=== PATIENT | female | born 1975 | race Caucasian/White ===

== ENCOUNTER 2017-03-19 15:37 | Inpatient (IN) | payer OTHER ==
[~2017-03-19] VITALS: Ht 168.9 cm; Wt 195.8 kg
[2017-03-19 15:41] VITALS: BP 166/101; PULSE 79; RESP 30; O2SAT 91
[2017-03-19 16:15] VITALS: BP 166/98; PULSE 75; RESP 26; O2SAT 96
[2017-03-19 16:20] LABS: BASOPHILS % (AUTO) 0.5 % (0-3); EOSINOPHILS % (AUTO) 0.4 % (0-5); MONOCYTES % (AUTO) 7.9 % (4-12); Mean Corpuscular Hemoglobin 24.8 pg (27.0-35.0); Mean Corpuscular Volume 82.8 fL (81-100); NEUTROPHILS % (AUTO) 77.6 % (40-74); Platelet Count 178 bil/L (150-400)
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
[2017-03-19] MEDS ORDERED: Albuterol 2.5 mg/3 mL Inhalation Solution NEB ONE (16:40)
[2017-03-19 16:48] LABS: TROPONIN T 0.033 ug/L (0.0-0.011)
--- NOTE | 2017-03-19 16:58 | DRSVH ---
PROCEDURE: X-RAY CHEST, TWO VIEWS ([id number]) INDICATIONS: SHORTNESS OF BREATH, low sats TECHNIQUE: 2 views of the chest were acquired. COMPARISON: None. FINDINGS: Surgical changes and devices: None. Lungs and pleura: No pleural effusions or pneumothorax. Lungs are abnormal with edema. Mediastinum: Mediastinal contours are normal. Heart size is moderately enlarged, and likely this is a chronic circumstance. Bones and chest wall: No suspicious bony abnormalities. Soft tissues appear unremarkable. IMPRESSION: Chronic CHF with acute exacerbation, no focal underlying pneumonia is found. No pleural effusion or mass lesion seen. Dictated by: Tyler Gomez M.D. on 03/19/2017 at 16:56 Approved by: Tyler Gomez M.D. on 03/19/2017 at 16:56
[2017-03-19 16:59] LABS: Magnesium 1.9 mg/dL (1.6-2.6)
[2017-03-19 17:10] VITALS: PULSE 77; RESP 16; O2SAT 97
[2017-03-19 18:06] VITALS: BP 151/96; PULSE 86; RESP 24; O2SAT 97
[2017-03-19] MEDS ORDERED: ENOXAPARIN SUBQ SCH ×2 (18:45)
[2017-03-19] MEDS ORDERED: Alum-Mag Hydrox-Simeth 30 mL Suspension PO PRN ×2 (18:55→19:20)
[2017-03-19] MEDS ORDERED: Ondansetron 2 mg/mL 2 mL Inj IVPUSH PRN ×2 (18:55→19:20)
[2017-03-19 19:20] VITALS: BP 151/96; PULSE 86; RESP 24; O2SAT 97
[2017-03-19] MEDS ORDERED: Senna-Docusate 8.6-50 mg Tablet PO PRN (19:20)
[2017-03-19] MEDS ORDERED: Polyethylene Glycol (PEG) 17 Gm Powder PO PRN (19:20)
--- NOTE | 2017-03-19 20:06 | DRSVH ---
PROCEDURE: US VENOUS LEG DUPLEX BILATERAL INDICATIONS: Bilateral leg swelling and redness. TECHNIQUE: Real-time imaging, as well as color and pulse Doppler interrogation, were performed of the deep veins of both legs from the inguinal ligament to the popliteal fossa. COMPARISON: None. FINDINGS: The deep veins are normally compressible, and free of intraluminal thrombus. Color and pu lse Doppler demonstrate normal phasic intravascular flow. There is normal augmentation response to d istal compression maneuver. Evaluation slightly limited by body habitus. IMPRESSION: 1. No evidence of deep venous thrombosis in the right or left lower extremity. Dictated by: Lito Hopkins M.D. on 03/19/2017 at 20:03 Approved by: Lito Hopkins M.D. on 03/19/2017 at 20:04
[2017-03-19 20:13] VITALS: BP 156/91; PULSE 82; RESP 18; O2SAT 95
[2017-03-19] MEDS ORDERED: Furosemide 10 mg/mL 10 mL Inj IVPUSH ONE (22:05)
--- NOTE | 2017-03-19 22:10 | PCM.HPMED ---
Subjective Date of Service March 19, 2017 Primary Provider: Admitting Physician: Primary Care Physician: Attending Physician: Admit Status: From the Emergency Department, Remote Telemetry Chief Complaint: Cough and congestion with shortness of breath History of Present Illness: Patient is a morbidly obese 41-year-old ex-smoker without previous history of known cardiac disease who presented to ED with new onset congestion and cough, congestion and increased shortness of breath for 1 week. Patient also reports of 20 pound weight gain in the past 3 weeks, with associated symptoms of increased fatigue and lateral lower extremity swelling, which patient attributed to too much sitting and poor diet. No known sick contacts. Patient denies chest pain, fevers or chills. PCP, Maeve Vargas. In the emergency department, she was noted to have episodes of desaturation required supplemental O2. She is also tachypic, but not visible distress. She has some chronic edema of her legs which reports is unchanged attributes to her habitus. Family history of heart disease, or prior history of heart disease. In the ED vitals temperature 37.4 pulse 70 respiratory 30 blood pressure 166/ 101 pulse ox 91% on room air. Labs, no leukocytosis with WBC 8.0, elevated bicarbonate at 33, with BNP 2160, troponin 0.03, D-dimer 1.1. CXR showed "Chronic CHF with acute exacerbation, no focal underlying pneumonia is found." Patient's size not fit for CTA, venous Doppler done on bilateral legs which were negative, apparently dosed with Lovenox overnight. Case was discussed with on-call food preservation scientist. Patient to have echocardiogram for further risk stratification, with cardiology seeing patient in the morning. Patient admitted for further workup and management. Review of Systems: Obesity Denies: Asthma, Diabetes mellitus, Hypertension Past Surgical History denies Smoking History Former Smoker (quit 11 years ago) Social History Alcohol Use: Denies alcohol use Drug Use: Denies drug use Occupation single work at [employer] in [place], need a work note 03/19/2017 Ambulatory Status Independent Allergies Coded Allergies: No Known Allergies (Unverified , 03/19/17) Home Medications No prescription medications. 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[employer] Alcohol Use: No Hx Substance Use: No Hx Tobacco Use: Yes Smoking Status: Former Smoker (quit 11 years ago) Living Arrangement: Other (with sister, local resident) Exam Vital Signs Vital Sign - Last Date Time Temp Pulse Resp B/P Pulse Ox O2 Delivery O2 Flow Rate FiO2 03/19/17 18:06 86 24 151/96 97 Nasal Cannula 2 Exam GEN: Morbidly obese, Awake, Alert, in mild respiratory distress, with no apparent use of accessory muscles noted HEENT: Atraumatic, Normocephalic, PERRL, EOMI, sclera anicteric Resp: Decreased breath sounds, no wheezes, rales, rhonchi appreciated, although difficult to assess due to body habitus CV: Heart rate NL, Regular rhythm, 1/6 systolic murmur noted, no gallops or rubs Abdomen: Protuberant, Atraumatic, Soft, no tenderness to palpation, difficult to assess any organomegaly due to body habitus Extremity: Sensation and strength intact, 3+ pitting edema up to below knees bilaterally with some erythema, no tenderness to palpation at bilateral calves Skin: Warm, Dry, and intact. Erythematous bilateral lower legs Neurologic: Oriented X3, Speech NL, No motor deficits, No sensory deficits Psychiatric: Affect NL, Mood NL Lab and Diagnostics Result Diagram: 03/19/17 1615 03/19/17 1615 X-Rays, CTs and MRIs Date of Service: 03/19/17 8499 PROCEDURE: X-RAY CHEST, TWO VIEWS ([id number]) INDICATIONS: SHORTNESS OF BREATH, low sats IMPRESSION: Chronic CHF with acute exacerbation, no focal underlying pneumonia is found. No pleural effusion or mass lesion seen. Dictated by: Tyler Gomez M.D. on 03/19/2017 at 16:56 Approved by: Tyler Gomez M.D. on 03/19/2017 at 16:56 Assessment & Plan Patient is a morbidly obese 41-year-old without previous history of known cardiac disease who presented to ED with new onset congestion, cough, with increased shortness of breath for 1 week. Patient endorses 20 pound weight gain in the past 3 weeks, with associated symptoms of increased fatigue and lateral lower extremity swelling, which patient attributed to too much sitting and poor diet. Patient presented with hypoxia, elevated BNP and troponin, with chest x- ray concerning for CHF and cardiomegaly. Patient is in for further risk stratification of her new be diagnosed CHF. Hypoxic respiratory failure, present on admission. Acute. - Most likely multifactorial due to her new onset of CHF exacerbated by her recent viral URI, in the presence of her morbid obesity, cannot rule out myositis secondary to viral respiratory illness - Bicarbonate elevated at 33, anion gap of 10, most likely due to compensation over time secondary to respiratory acidosis due to all of the above - Keep oxygen saturation above 92% New onset congestive heart failure, present on admission. - Chest x-ray findings suspicious for CHF with elevated BNP, patient reporting of recent weight gain of 20 pounds with lower extremity edema [id number] - Patient reports of having an echo at the [facility] 3 years ago, with no follow-up needed - On telemetry - Heart healthy diet - 60 mg of Lasix IV given - Patient to have echocardiogram in a.m. - Appreciate cardiology consult Elevated troponin, present on admission. - No acute findings on ECG, patient asymptomatic, most likely due to demand ischemia - Trending troponin Elevated D-dimer, present on admission. - Unable to get CTA due to habitus, Doppler negative for DVT, low suspicion for PE at this time with patient not complaining of chest pain, tachypnea resolved - will continue to monitor - consider VQ scan Upper respiratory infection, present on admission. Acute. - No leukocytosis with Procalcitonin 0.05, most likely viral etiology - Respiratory viral PCR pending Elevated TSH - Free T4 pending Pickwickian syndrome, present on admission. Chronic. - Dietitian consult for CHF ordered Morbid obesity, present on admission. Chronic - weight loss discussed - patient reports snoring, recommend sleep study outpatient for [facility] Acetaminophen-fever/headache/mild/moderate pain Antiemetics, as needed Bowel regimen, as needed. Patient status: Patient was admitted under inpatient status with expected length of stay greater than two midnights due to severity of presenting symptoms , risk of adverse event, and complexity of treatment plan. Pain Evaluation: Adequate Pain Control VTE Prophylaxis: Sub-Q Enoxaparin Resuscitation Status: CPR: Attempt Resuscitation Attending Statement The patient was seen and examined together with Dr. Garza on 03/19 and I agree with the history, exam and plan as outlined in the note above. copies to: Maeve Vargas MD, Fumiko O DO March 19, 2017 19:11 Lui Greer MD March 20, 2017 04:20
[2017-03-20] VITALS (7 sets, daily range): BP systolic 109–123; BP diastolic 67–80; PULSE 71–101; RESP 18; O2SAT 91–96
[2017-03-20 00:26] LABS: APPEARANCE,URINE CLEAR (CLEAR,HAZY); COLOR,URINE YELLOW (YELLOW); OCCULT BLOOD,URINE LARGE (NEGATIVE); PH,URINE 7.5 (5.0-8.0); UROBILINOGEN,URINE NORMAL (NORMAL)
[2017-03-20] MEDS: Sodium Chloride LOK Flush 10 mL Syringe IVFLUSH SCH ×4 (00:37→23:01)
[2017-03-20 03:38] LABS: BASOPHILS % (AUTO) 0.4 % (0-3); EOSINOPHILS % (AUTO) 1.5 % (0-5); MONOCYTES % (AUTO) 7.8 % (4-12); Mean Corpuscular Hemoglobin 25.3 pg (27.0-35.0); Mean Corpuscular Volume 82.5 fL (81-100); NEUTROPHILS % (AUTO) 74.7 % (40-74); Platelet Count 203 bil/L (150-400)
[2017-03-20 04:09] LABS: TROPONIN T 0.034 ug/L (0.0-0.011)
--- NOTE | 2017-03-20 09:05 | NUR ---
Social Work: Screening Data: Pt is a 41 y/o female admitted for CHF, hypoxia, elevated troponin. Pt's PCP is Dr Vargas, pt's insurance is [employer]. EMR reviewed. DIRECTOR PRESALES will follow for possible HH need. Assessment: Pt who is independent at baseline. Plan: Pt will d/c home via POV when medically stable. DIRECTOR PRESALES will follow for possible HH RN need due to CHF. DIRECTOR PRESALES will continue to follow. SHAHEED Soriano
[2017-03-20] MEDS: ENOXAPARIN SUBQ SCH ×4 (10:31→23:01)
--- NOTE | 2017-03-20 11:03 | NUR ---
Oxygen needs Patient up to bathroom independently. Patient currently on 3L O2 while resting, sats of 97% Patient desaturates with exertion, down to 80's, (82-86%). Pt educated on the importance of continued monitoring with sats and oxygen with activity. Patient refuses both. Refuse to have supplemental oxygen on while going to the bathroom, and refuses to keep sat monitor on. Will continue to monitor and educate further.
--- NOTE | 2017-03-20 13:32 | NUR ---
O2 Titrate Pt continues to be monitored for oxygen needs. With exertion pt desats. Pt non-compliant with continuous pulse ox. Pt states it is "irritating" and requests to be removed. Monitored sats, 97% on 3L. Decreased to 2L, pt tolerating and remains 93-94%. Pt currently stable with oxygen needs and removed the pulse ox as requested. Educated pt on the importance of adequate oxygen. Pt agreeable to inform RN if any SOB, any chest pains, any change in breathing. Pt requests privacy and remains to remove oxygen when using restroom despite education. Call light within reach.
[2017-03-20] MEDS ORDERED: Furosemide 10 mg/mL 10 mL Inj IVPUSH SCH (17:05)
[2017-03-20] MEDS: Potassium Chloride 20 mEq SR Tablet PO SCH (18:24)
--- NOTE | 2017-03-20 20:48 | DRSVH ---
PROCEDURE: X-RAY CHEST, TWO VIEWS ([id number]) INDICATIONS: CONGESTIVE HEART FAILURE TECHNIQUE: 2 views of the chest were acquired. COMPARISON: None. FINDINGS: Surgical changes and devices: None. Lungs and pleura: No pleural effusions or pneumothorax. Mild cephalization of the pulmonary vascula ture and perihilar indistinctness. No focal air space opacities. Mediastinum: Mediastinal contours are normal. Heart size is mildly enlarged. Bones and chest wall: No suspicious bony abnormalities. Soft tissues appear unremarkable. IMPRESSION: Mild CHF. Dictated by: Delores Layne MD, PhD on 03/20/2017 at 20:46 Approved by: Delores Layne MD, PhD on 03/20/2017 at 20:47
--- NOTE | 2017-03-21 00:48 | PCM.PNMED ---
Subjective Date of Service March 20, 2017 Subjective Patient states that she is still short of breath with activity. She has no other new complaints. Exam Vital Signs Vital Sign - Last Date Time Temp Pulse Resp B/P Pulse Ox O2 Delivery O2 Flow Rate FiO2 03/20/17 21:55 Supplement Oxygen 03/20/17 20:38 36.9 84 18 121/80 96 2.00 Intake and Output 03/20/17 03/20/17 03/21/17 Cumulative From/Thru 15:00 23:00 07:00 03/19/17 15:41 - 03/20/17 18:32 Intake Total 1690 ml 2290 ml Output Total 900 ml 7050 ml Balance 790 ml -4760 ml Intake Oral 1680 ml 2280 ml IV Total 10 ml 10 ml Output Urine Total 900 ml 7050 ml Exam General patient is in no apparent distress at rest. However, she desaturates and get short of breath with any activity. Lab and Diagnostics Result Diagram: 03/20/17 0322 03/20/17 0322 X-Rays, CTs and MRIs Date of Service: 03/19/17 1549 PROCEDURE: X-RAY CHEST, TWO VIEWS ([id number]) INDICATIONS: SHORTNESS OF BREATH, low sats IMPRESSION: Chronic CHF with acute exacerbation, no focal underlying pneumonia is found. No pleural effusion or mass lesion seen. Dictated by: Tyler Gomez M.D. on 03/19/2017 at 16:56 Approved by: Tyler Gomez M.D. on 03/19/2017 at 16:56 PROCEDURE: US VENOUS LEG DUPLEX BILATERAL INDICATIONS: Bilateral leg swelling and redness. TECHNIQUE: Real-time imaging, as well as color and pulse Doppler interrogation, were performed of the deep veins of both legs from the inguinal ligament to the popliteal fossa. COMPARISON: None. FINDINGS: The deep veins are normally compressible, and free of intraluminal thrombus. Color and pulse Doppler demonstrate normal phasic intravascular flow. There is normal augmentation response to distal compression maneuver. Evaluation slightly limited by body habitus. IMPRESSION: 1. No evidence of deep venous thrombosis in the right or left lower extremity. Dictated by: Lito Hopkins M.D. on 03/19/2017 at 20:03 Approved by: Lito Hopkins M.D. on 03/19/2017 at 20:04 PROCEDURE: X-RAY CHEST, TWO VIEWS ([id number]) INDICATIONS: CONGESTIVE HEART FAILURE TECHNIQUE: 2 views of the chest were acquired. COMPARISON: None. FINDINGS: Surgical changes and devices: None. Lungs and pleura: No pleural effusions or pneumothorax. Mild cephalization of the pulmonary vasculature and perihilar indistinctness. No focal air space opacities. Mediastinum: Mediastinal contours are normal. Heart size is mildly enlarged. Bones and chest wall: No suspicious bony abnormalities. Soft tissues appear unremarkable. IMPRESSION: Mild CHF. Dictated by: Delores Layne MD, PhD on 03/20/2017 at 20:46 Approved by: Delores Layne MD, PhD on 03/20/2017 at 20:47 Assessment & Plan Patient is a morbidly obese 41-year-old without previous history of known cardiac disease who presented to ED with new onset congestion, cough, with increased shortness of breath for 1 week. Patient endorses 20 pound weight gain in the past 3 weeks, with associated symptoms of increased fatigue and lateral lower extremity swelling, which patient attributed to too much sitting and poor diet. Patient presented with hypoxia, elevated BNP and troponin, with chest x- ray concerning for CHF and cardiomegaly. Patient is in for further risk stratification of her new be diagnosed CHF. Hypoxic respiratory failure, present on admission. Acute. - Most likely multifactorial due to her new onset of CHF exacerbated by her recent viral URI, in the presence of her morbid obesity, with possible obesity hypoventilation syndrome, possible obstructive sleep apnea with echocardiogram showing right ventricular strain and elevated right-sided pressures there is also a question of possible pulmonary embolism. We will continue therapeutic doses of Lovenox. - Bicarbonate elevated at 33, anion gap of 10, most likely due to compensation over time secondary to respiratory acidosis due to all of the above - Keep oxygen saturation above 92% New onset congestive heart failure, present on admission. - Chest x-ray findings suspicious for CHF with elevated BNP, patient reporting of recent weight gain of 20 pounds with lower extremity edema x3wks - Patient reports of having an echo at the [facility] 3 years ago, with no follow-up needed - On telemetry - Heart healthy diet - 60 mg of Lasix IV given and will repeat this dose again today. - Patient to have echocardiogram in a.m. - Appreciate cardiology consult Elevated troponin, present on admission. - No acute findings on ECG, patient asymptomatic, most likely due to demand ischemia - Trending troponin Elevated D-dimer, present on admission. - Unable to get CTA due to habitus, Doppler negative for DVT, however echocardiogram is suggestive of possible PE due to right ventricular strain and elevated right-sided pressures per Dr. Bryant, final echocardiogram report pending - We will continue to monitor - We will consider VQ scan Upper respiratory infection, present on admission. Acute. - No leukocytosis with Procalcitonin 0.05, most likely viral etiology - Respiratory viral PCR pending Elevated TSH - Free T4 pending Pickwickian syndrome, present on admission. Chronic. - Dietitian consult for CHF ordered Morbid obesity, present on admission. Chronic - weight loss discussed - patient reports snoring, recommend sleep study outpatient for KYRA Acetaminophen-fever/headache/mild/moderate pain Antiemetics, as needed Bowel regimen, as needed. Patient status: Patient will likely be here another 4872 hours for the evaluation and treatment of the above condition. Pain Evaluation: Adequate Pain Control VTE Prophylaxis: Sub-Q Enoxaparin Resuscitation Status: CPR: Attempt Resuscitation LehrBogdan MD March 21, 2017 00:48
[2017-03-21 05:30] VITALS: BP_SYST 126; BP_SYST 129; BP_SYST 134; BP_DIAS 72; BP_DIAS 76; BP_DIAS 84; PULSE 92; RESP 18; O2SAT 94
--- NOTE | 2017-03-21 06:07 | NUR ---
Respiratory: pt has remained on 2LO2 the majority of shift. CPOX in place, pt snoring loudly, sats low 80's, O2 turned up to 5LO2 and sats low 90's, pt seems to be mouth breathing, but declines oxymask. pt easy to wake up, and have conversation. Pt woke up again and requested O2 to be turned down to 2LO2, sats low 90's while awake. will continue to monitor.
[2017-03-21 06:39] LABS: BASOPHILS % (AUTO) 0.4 % (0-3); EOSINOPHILS % (AUTO) 1.7 % (0-5); MONOCYTES % (AUTO) 8.8 % (4-12); Mean Corpuscular Hemoglobin 24.4 pg (27.0-35.0); Mean Corpuscular Volume 83.9 fL (81-100); NEUTROPHILS % (AUTO) 77.7 % (40-74); Platelet Count 160 bil/L (150-400)
[2017-03-21 07:34] LABS: ERYTHROCYTE SEDIMENTATION RATE 6 mm/hr (0-32)
[2017-03-21] MEDS: Potassium Chloride 20 mEq SR Tablet PO SCH (08:23)
[2017-03-21] MEDS: Sodium Chloride LOK Flush 10 mL Syringe IVFLUSH SCH ×2 (08:23→16:17)
--- NOTE | 2017-03-21 09:06 | DRSVH ---
[facility] [address] [place] [address] Echocardiogram Report Name: CHARLOTTE XIAO HStudy Date : 03/20/2017 Height: 66.5 in Hospital Exam Location: [facility] Weight: 444 lb Gender: Female BSA: 2.8 m2 : 1975 Age: 41 yrs BP: 123/74 mmHg Reason For Study: SOB Ordering Physician: HOSPITALIST [facility] Performed By: Nathan Devine Referring Physician: SUSANNA LYONS Interpretation Summary The left ventricle is borderline dilated. Left ventricular wall thickness is mildly increased. The left ventricular ejection fraction is grossly normal. Assessment of diastolic parameters indicates normal left ventricular diastolic function and normal filling pressures. The right ventricle is moderately dilated. The left atrium is not well visualized. Flattened septum is consistent with RV pressure/volume overload. Grossly, RA is at least moderately dilated. There is mild to moderate tricuspid regurgitation. There is no other significant valvular heart disease. The IVC is dilated (diameter is greater than 2.1 cm) and it collapses less than 50% with a sniff. This suggests a high right atrial pressure of 15 mm Hg. There is no pericardial effusion. Findings are suggestive of pulmonary embolism but should consider other etiologies as well such as hypoventilation syndrome. There is evidence for right sided heart failure as mentioned above and does not appear to be secondary to left sided heart failure based on 2-D echo and Doppler findings. Findings were discussed with Dr. Sapp at around 2000 hrs on 03/20/2017. Procedure: A two-dimensional transthoracic echocardiogram with color flow and Doppler was performed. The study quality was technically difficult. A contrast injection of Definity was performed to improve assessment of LV function. There is no prior echocardiogram noted for this patient. The heart rate ranged between 71-110 bpm during the study. Left Ventricle: The left ventricle is borderline dilated. Left ventricular wall thickness is mildly increased. The left ventricular ejection fraction is grossly normal. Flattened septum is consistent with RV pressure/volume overload. Assessment of diastolic parameters indicates normal left ventricular diastolic function and normal filling pressures. Right Ventricle: The right ventricle is moderately dilated. Right ventricular systolic function is moderately reduced. Atria: The left atrium is not well visualized. Grossly, RA is at least moderately dilated. There is no Doppler evidence for an atrial septal defect. Mitral Valve: The mitral valve is grossly normal. Evaluation of regurgitation is inadequate. Aortic Valve: The aortic valve is grossly normal. No aortic regurgitation is present. Tricuspid Valve: The tricuspid valve is not well visualized, but is grossly normal. There is mild to moderate tricuspid regurgitation. The right ventricular systolic pressure is estimated at 65 mmHg assuming a right atrial pressure of 15 mm Hg. Pulmonic Valve: The pulmonic valve is not well visualized. There is a trace or physiologic amount of pulmonic regurgitation. There is no other significant valvular heart disease. Great Vessels: The aortic root is normal size. The ascending aorta could not be visualized. The pulmonary artery is not well visualized, but is probably normal size. The IVC is dilated (diameter is greater than 2.1 cm) and it collapses less than 50% with a sniff. This suggests a high right atrial pressure of 15 mm Hg. Pericardium/ Pleura There is no pericardial effusion. There is no pleural effusion. MMode/2D Measurements & Calculations LVIDd: 5.2 cm IVC diam Ao Arch Diam (Prox LV correa. diameter/BSA LVIDs: 3.1 cm : 2.7 cm Trans): 3.1 cm (cm/m^2): 1.8 FS: 40.7 % EPSS: 0.43 cm IVSd: 0.98 cm LVPWd: 1.1 cm LV sys. diameter/BSA (cm/m^2): 1.1 Doppler Measurements & Calculations Ao V2 max MV E max montana MV E/A: 1.6 TR max montana : 207.8 cm/sec : 99.1 cm/sec Med Peak E' [place] : 352.4 cm/sec Ao max PG MV A max montana TR max PG : 17.3 mmHg : 63.8 cm/sec E/E' med: 10.2 : 49.7 mmHg Ao mean PG Lat Peak E' [place] LVOT Max [place] E/E' lat: 8.2 : 101.1 cm/sec E/e' average: 9.2 sev ratio: 0.42 MV dec time Ao V2 mean LV V1 max PG : 0.21 sec : 127.0 cm/sec Ao V2 VTI: 33.9 cm LV V1 VTI: 14.2 cm Reading Physician:SG
[2017-03-21] MEDS: ENOXAPARIN SUBQ SCH ×4 (09:48→22:55)
[2017-03-21 12:53] VITALS: BP 135/85; PULSE 72; RESP 20; O2SAT 95
--- NOTE | 2017-03-21 13:16 | NUR ---
Social Work-continued d/c planning: Data:EMR reviewed. Pt is on day 2 of hospitalization for CHF per H&P. Pt is not medically stable anticipate several more days. Per MD in morning rounds, MD to look into transfer of pt to higher level of care. If pt remains at [facility], SW to follow up with pt regarding HH services. Pt resides at home and has been up independent in her room. SW will continue to follow. Assessment:Pt who is independent at baseline. Plan:Pt to either discharge home when medically stable vs transfer to higher level of care. R/O HH services. SW will continue to follow. SHAHEED Bernard
--- NOTE | 2017-03-21 17:18 | NUR ---
Daily update Patient is alert and oriented X3. Patient denied any pain today. Patient remains independent to bathroom and with ADLs. Patient does tend to stand at bedside table watching videos on her laptop. Patient has been compliant with care today, but continues to remove nasal cannula to use restroom. Patient continues on 2L supplemental oxygen with diminished lung sounds. Patient has been updated on plan of care throughout the day.
[2017-03-21 21:38] VITALS: BP 127/76; PULSE 63; RESP 20; O2SAT 94
--- NOTE | 2017-03-21 23:43 | PCM.PNMED ---
Subjective Date of Service March 21, 2017 Subjective The patient is beginning to feel a little bit better. Still very short of breath with exertion. Exam Vital Signs Vital Sign - Last Date Time Temp Pulse Resp B/P Pulse Ox O2 Delivery O2 Flow Rate FiO2 03/21/17 21:51 Supplement Oxygen 03/21/17 21:38 36.5 63 20 127/76 94 2.50 Intake and Output 03/20/17 03/20/17 03/21/17 Cumulative From/Thru 15:00 23:00 07:00 03/19/17 15:41 - 03/21/17 06:11 Intake Total 1690 ml 1672 ml 3962 ml Output Total 900 ml 5900 ml 26161 ml Balance 790 ml -4228 ml -8988 ml Intake Oral 1680 ml 1672 ml 3952 ml IV Total 10 ml 10 ml Output Urine Total 900 ml 5900 ml 74086 ml Exam General: The patient is in no apparent distress at rest. HEENT: Head is atraumatic and normocephalic. Eyes: Pupils are equally round and reactive to light and accommodation. Extraocular muscles are intact. Sclera are white, anicteric. Subconjunctival mucosa is pink. Ears and nose are unremarkable. Oropharynx: There is no mucosal lesions, there is no thrush, there is no pharyngitis. Neck: Is supple, there are no nodes, or masses or tenderness. Chest: Is significant for decreased breath sounds with few bibasilar rales. Heart: Rate, rhythm is regular. There is no murmur, rub or gallop. Abdomen: Good bowel sounds are present. Abdomen is morbidly obese, soft, nontender, no organomegaly or masses were appreciated. Extremities: Are symmetrical and well perfused. There is no to 3+ lower extremity edema, there is no cellulitis, no rash. However, there is some hyperemia of all 4 extremities. Patient states this is normal for her. Neurologic: There are no focal neurological deficits. Cranial nerves II through XII are intact. There are no sensory or motor deficits. Psychiatric: Patients mood is calm and shows no sign of agitation. Genital: Deferred Rectal: Deferred Lab and Diagnostics Result Diagram: 03/21/17 0615 03/21/17 0615 Microbiology Respiratory viral PCR is negative Blood cultures are negative 2 today. X-Rays, CTs and MRIs Date of Service: 03/19/17 1549 PROCEDURE: X-RAY CHEST, TWO VIEWS ([id number]) INDICATIONS: SHORTNESS OF BREATH, low sats IMPRESSION: Chronic CHF with acute exacerbation, no focal underlying pneumonia is found. No pleural effusion or mass lesion seen. Dictated by: Tyler Gomez M.D. on 03/19/2017 at 16:56 Approved by: Tyler Gomez M.D. on 03/19/2017 at 16:56 PROCEDURE: US VENOUS LEG DUPLEX BILATERAL INDICATIONS: Bilateral leg swelling and redness. TECHNIQUE: Real-time imaging, as well as color and pulse Doppler interrogation, were performed of the deep veins of both legs from the inguinal ligament to the popliteal fossa. COMPARISON: None. FINDINGS: The deep veins are normally compressible, and free of intraluminal thrombus. Color and pulse Doppler demonstrate normal phasic intravascular flow. There is normal augmentation response to distal compression maneuver. Evaluation slightly limited by body habitus. IMPRESSION: 1. No evidence of deep venous thrombosis in the right or left lower extremity. Dictated by: Lito Hopkins M.D. on 03/19/2017 at 20:03 Approved by: Lito Hopkins M.D. on 03/19/2017 at 20:04 PROCEDURE: X-RAY CHEST, TWO VIEWS ([id number]) INDICATIONS: CONGESTIVE HEART FAILURE TECHNIQUE: 2 views of the chest were acquired. COMPARISON: None. FINDINGS: Surgical changes and devices: None. Lungs and pleura: No pleural effusions or pneumothorax. Mild cephalization of the pulmonary vasculature and perihilar indistinctness. No focal air space opacities. Mediastinum: Mediastinal contours are normal. Heart size is mildly enlarged. Bones and chest wall: No suspicious bony abnormalities. Soft tissues appear unremarkable. IMPRESSION: Mild CHF. Dictated by: Delores Layne MD, PhD on 03/20/2017 at 20:46 Approved by: Delores Layne MD, PhD on 03/20/2017 at 20:47 Cardiac Echo Impressions Echocardiogram Report Name: CHARLOTTE XIAO HStudy Date : 03/20/2017 Height: 66.5 in Hospital Exam Location: [facility] Weight: 444 lb Gender: Female BSA: 2.8 m2 : 1975 Age: 41 yrs BP: 123/74 mmHg Reason For Study: SOB Ordering Physician: HOSPITALIST [facility] Performed By: Nathan Devine Referring Physician: SUSANNA LYONS Interpretation Summary The left ventricle is borderline dilated. Left ventricular wall thickness is mildly increased. The left ventricular ejection fraction is grossly normal. Assessment of diastolic parameters indicates normal left ventricular diastolic function and normal filling pressures. The right ventricle is moderately dilated. The left atrium is not well visualized. Flattened septum is consistent with RV pressure/volume overload. Grossly, RA is at least moderately dilated. There is mild to moderate tricuspid regurgitation. There is no other significant valvular heart disease. The IVC is dilated (diameter is greater than 2.1 cm) and it collapses less than 50% with a sniff. This suggests a high right atrial pressure of 15 mm Hg. There is no pericardial effusion. Findings are suggestive of pulmonary embolism but should consider other etiologies as well such as hypoventilation syndrome. There is evidence for right sided heart failure as mentioned above and does not appear to be secondary to left sided heart failure based on 2-D echo and Doppler findings. Assessment & Plan Patient is a morbidly obese 41-year-old without previous history of known cardiac disease who presented to ED with new onset congestion, cough, with increased shortness of breath for 1 week. Patient endorses 20 pound weight gain in the past 3 weeks, with associated symptoms of increased fatigue and lateral lower extremity swelling, which patient attributed to too much sitting and poor diet. Patient presented with hypoxia, elevated BNP and troponin, with chest x- ray concerning for CHF and cardiomegaly. Patient is in for further risk stratification of her new be diagnosed CHF. Hypoxic respiratory failure, present on admission. Acute. - Most likely multifactorial due to her new onset of CHF exacerbated by her recent viral URI, in the presence of her morbid obesity, with possible obesity hypoventilation syndrome, possible obstructive sleep apnea with echocardiogram showing right ventricular strain and elevated right-sided pressures there is also a question of possible pulmonary embolism. We will continue therapeutic doses of Lovenox. I have contacted the [facility] transfer center today on 2 separate occasions to see if we can get the patient transferred to one of their hospitals either [facility] or [facility]. Currently they have no beds and they are inquiring about the patient's height weight in with an girth and fit in there facility CT scan machines. As we need a diagnosis to decide whether or not to continue full therapeutic anticoagulation on this patient patient will need a CT angiogram of the chest. Patient will continue on current therapy for now until arrangements can be made for her to obtain a CT angiogram. - Bicarbonate elevated at 33, anion gap of 10, most likely due to compensation over time secondary to respiratory acidosis due to all of the above - Keep oxygen saturation above 92% New onset congestive heart failure, present on admission. - Chest x-ray findings suspicious for CHF with elevated BNP, patient reporting of recent weight gain of 20 pounds with lower extremity edema x3wks - Patient reports of having an echo at the [facility] 3 years ago, with no follow-up needed - On telemetry - Heart healthy diet - 60 mg of Lasix IV given and will repeat this dose again today. - Patient to have echocardiogram in a.m. - Appreciate cardiology consult Elevated troponin, present on admission. - No acute findings on ECG, patient asymptomatic, most likely due to demand ischemia - Trending troponin Elevated D-dimer, present on admission. - Unable to get CTA due to habitus, Doppler negative for DVT, however echocardiogram is suggestive of possible PE due to right ventricular strain and elevated right-sided pressures per Dr. Bryant, final echocardiogram report pending - We will continue to monitor - We will consider VQ scan Upper respiratory infection, present on admission. Acute. - No leukocytosis with Procalcitonin 0.05, most likely viral etiology - Respiratory viral PCR pending Elevated TSH - Free T4 pending Pickwickian syndrome, present on admission. Chronic. - Dietitian consult for CHF ordered Morbid obesity, present on admission. Chronic - weight loss discussed - patient reports snoring, recommend sleep study outpatient for KYRA Acetaminophen-fever/headache/mild/moderate pain Antiemetics, as needed Bowel regimen, as needed. Patient status: Patient will likely be here another 48-72 hours for the evaluation and treatment of the above condition. Pain Evaluation: Adequate Pain Control GI Prophylaxis: Proton Pump Inhibitor VTE Prophylaxis: Sub-Q Enoxaparin Resuscitation Status: CPR: Attempt Resuscitation Bogdan Sapp MD March 21, 2017 23:43
[2017-03-22] MEDS: Sodium Chloride LOK Flush 10 mL Syringe IVFLUSH SCH ×4 (00:30→23:54)
[2017-03-22 05:24] VITALS: BP 115/68; PULSE 101; RESP 18; O2SAT 90
--- NOTE | 2017-03-22 05:41 | NUR ---
Respiratory: pt snoring loudly, with witnessed apnea 2-4 seconds. On 2Lo2 while asleep sats low 80's. pt agreeable to wearing oxymask at 5Lo2 sats low 90's. CPOX in place. CPOX alarming face mask off to side, so pt on RA, sats 78 to 79%. pt is now awake on 2LO2 sats low to mid 90's. will continue to mnitor pt.
[2017-03-22] MEDS: Pantoprazole 40 mg ER24 Tablet PO SCH (07:35)
[2017-03-22] MEDS: Potassium Chloride 20 mEq SR Tablet PO SCH (07:35)
[2017-03-22 08:31] LABS: Magnesium 2.5 mg/dL (1.6-2.6)
[2017-03-22 09:02] LABS: Mean Corpuscular Volume 86.7 fL (81-100)
[2017-03-22 09:03] LABS: BASOPHILS % (AUTO) 0.4 % (0-3); EOSINOPHILS % (AUTO) 2.1 % (0-5); MONOCYTES % (AUTO) 7.8 % (4-12); Platelet Count 197 bil/L (150-400)
[2017-03-22] MEDS ORDERED: Furosemide 10 mg/mL 10 mL Inj IVPUSH ONE (09:05)
[2017-03-22] MEDS ORDERED: Potassium Chloride 20 mEq SR Tablet PO ONE (09:05)
[2017-03-22] MEDS: ENOXAPARIN SUBQ SCH ×4 (09:20→23:54)
[2017-03-22 09:23] VITALS: BP_SYST 114; BP_SYST 116; BP_SYST 124; BP_DIAS 72; BP_DIAS 74; BP_DIAS 77; PULSE 100; RESP 20; O2SAT 92
[2017-03-22 12:22] VITALS: BP 120/75; PULSE 94; RESP 20; O2SAT 96
--- NOTE | 2017-03-22 12:24 | DRSVH ---
PROCEDURE: X-RAY CHEST, TWO VIEWS ([id number]) INDICATIONS: Hypoxia TECHNIQUE: 2 views of the chest were acquired. COMPARISON: [facility], CR, XR CHEST 2VW, 03/19/2017, 16:37. [facility], CR, XR CHEST 2VW, 03/20/2017, 20:31. FINDINGS: Surgical changes and devices: None. Lungs and pleura: No pleural effusions or pneumothorax. Lungs are clear no air space opacities. Mediastinum: Mediastinal contours are normal. Heart size is enlarged, but stable compared to prior examinations. Bones and chest wall: No suspicious bony abnormalities. Soft tissues appear unremarkable. IMPRESSION: No acute cardiopulmonary disease process. Dictated by: Delores Layne MD, PhD on 03/22/2017 at 12:21 Approved by: Delores Layne MD, PhD on 03/22/2017 at 12:22
--- NOTE | 2017-03-22 12:27 | DRSVH ---
PROCEDURE: NM LUNG VQ RADIOPHARMACEUTICAL: 25.4 mCi Tc-99m DTPA aerosol by inhalation and 5.92 mCi Tc-99m MAA intravenousl y. INDICATIONS: HYPOXIA/POSSIBLE PULMONARY EMBOLISM. TECHNIQUE: Ventilation images were obtained first with Tc-99m DTPA aerosol. Subsequently, perfusion images were acquired after intravenous injection of Tc-99m MAA. Anterior, posterior, LINDER, ICELANDIC, RPO, LPO, left and right lateral views were obtained. COMPARISON: None. FINDINGS: Perfusion images demonstrate no, peripheral, wedge-shaped perfusion defects. Ventilation images demonstrate no areas of hypoventilation. IMPRESSION: Probability for pulmonary embolus is low (15%). Dictated by: Delores Layne MD, PhD on 03/22/2017 at 12:23 Approved by: Delores Layne MD, PhD on 03/22/2017 at 12:24
--- NOTE | 2017-03-22 15:19 | ABG ---
DateTimeAnalyzed 15:13:00 -_ pH ____7.370 - 7.350 7.450 pCO2 ___72.8__ -mmHg 35.0 45.0 pO2 ___63.0__ -mmHg 69.0 116 HCO3- ___41.1__ -mmol/L 22.0 26.0 ABE ___12.7__ -mmol/L -2.0 2.0 tHb ___13.4__ -g/dL O2Hb ___89.5__ -% COHb ____2.1__ -% MetHb ____0.8__ -% sO2 ___92.2__ -% FIO2 ___28.0__ -% Drawn By NB - Date/Time Notified____ 15:18:00 -_ Liter_Flow ____2.0__ -L/min Oxygen Device 1 __CANNULA - Notified By NB - Notified Whom ___DR. YANG - B 763 -mmHg tO2 ___16.9__ -Vol% Efren test N/A -
--- NOTE | 2017-03-22 18:36 | NUR ---
Left for CT to [facility] Patient needed CT to rule out PE. Patient was set up to have CT angio at [facility]. [place] transport ALS arrived at 1835. Patient placed in [facility] and left with ALS at 1840. Patient will return to [facility] after CT angio to same room.
[2017-03-22 23:32] VITALS: BP 132/86; PULSE 83; RESP 20; O2SAT 91
--- NOTE | 2017-03-22 23:37 | PCM.PNMED ---
Subjective Date of Service March 22, 2017 Subjective Patient is feeling about the same today. She has no new complaints. Exam Vital Signs Vital Sign - Last Date Time Temp Pulse Resp B/P Pulse Ox O2 Delivery O2 Flow Rate FiO2 03/22/17 16:30 Supplement Oxygen 03/22/17 12:22 36.8 94 20 120/75 96 2.00 Intake and Output 03/21/17 03/21/17 03/22/17 Cumulative From/Thru 15:00 23:00 07:00 03/19/17 15:41 - 03/22/17 06:21 Intake Total 1363 ml 400 ml 5725 ml Output Total 1200 ml 1925 ml 61835 ml Balance 163 ml -1525 ml -77538 ml Intake Oral 1353 ml 400 ml 5705 ml IV Total 10 ml 20 ml Output Urine Total 1200 ml 1925 ml 84850 ml # Bowel Movements 1 1 Exam General: The patient is in no apparent distress at rest. She does have dyspnea with exertion HEENT: Head is atraumatic and normocephalic. Eyes: Pupils are equally round and reactive to light and accommodation. Extraocular muscles are intact. Sclera are white, anicteric. Subconjunctival mucosa is pink. Ears and nose are unremarkable. Oropharynx: There is no mucosal lesions, there is no thrush, there is no pharyngitis. Neck: Is supple, there are no nodes, or masses or tenderness. Chest: Is significant for decreased breath sounds with few bibasilar rales. Heart: Rate, rhythm is regular. There is no murmur, rub or gallop. Abdomen: Good bowel sounds are present. Abdomen is morbidly obese, soft, nontender, no organomegaly or masses were appreciated. Extremities: Are symmetrical and well perfused. There is no to 3+ lower extremity edema, there is no cellulitis, no rash. However, there is some hyperemia of all 4 extremities. Patient states this is normal for her. Neurologic: There are no focal neurological deficits. Cranial nerves II through XII are intact. There are no sensory or motor deficits. Psychiatric: Patients mood is calm and shows no sign of agitation. Genital: Deferred Rectal: Deferred Lab and Diagnostics Result Diagram: 03/22/1771603/22/17716 Microbiology Respiratory viral PCR is negative Blood cultures are negative 2 today. X-Rays, CTs and MRIs Date of Service: 03/19/17 1549 PROCEDURE: X-RAY CHEST, TWO VIEWS ([id number]) INDICATIONS: SHORTNESS OF BREATH, low sats IMPRESSION: Chronic CHF with acute exacerbation, no focal underlying pneumonia is found. No pleural effusion or mass lesion seen. Dictated by: Tyler Gomez M.D. on 03/19/2017 at 16:56 Approved by: Tyler Gomez M.D. on 03/19/2017 at 16:56 PROCEDURE: US VENOUS LEG DUPLEX BILATERAL INDICATIONS: Bilateral leg swelling and redness. TECHNIQUE: Real-time imaging, as well as color and pulse Doppler interrogation, were performed of the deep veins of both legs from the inguinal ligament to the popliteal fossa. COMPARISON: None. FINDINGS: The deep veins are normally compressible, and free of intraluminal thrombus. Color and pulse Doppler demonstrate normal phasic intravascular flow. There is normal augmentation response to distal compression maneuver. Evaluation slightly limited by body habitus. IMPRESSION: 1. No evidence of deep venous thrombosis in the right or left lower extremity. Dictated by: Lito Hopkins M.D. on 03/19/2017 at 20:03 Approved by: Lito Hopkins M.D. on 03/19/2017 at 20:04 PROCEDURE: X-RAY CHEST, TWO VIEWS ([id number]) INDICATIONS: CONGESTIVE HEART FAILURE TECHNIQUE: 2 views of the chest were acquired. COMPARISON: None. FINDINGS: Surgical changes and devices: None. Lungs and pleura: No pleural effusions or pneumothorax. Mild cephalization of the pulmonary vasculature and perihilar indistinctness. No focal air space opacities. Mediastinum: Mediastinal contours are normal. Heart size is mildly enlarged. Bones and chest wall: No suspicious bony abnormalities. Soft tissues appear unremarkable. IMPRESSION: Mild CHF. Dictated by: Delores Layne MD, PhD on 03/20/2017 at 20:46 Approved by: Delores Layne MD, PhD on 03/20/2017 at 20:47 Cardiac Echo Impressions Echocardiogram Report Name: CHARLOTTE XIAO HStudy Date : 03/20/2017 Height: 66.5 in Hospital Exam Location: [facility] Weight: 444 lb Gender: Female BSA: 2.8 m2 : 1975 Age: 41 yrs BP: 123/74 mmHg Reason For Study: SOB Ordering Physician: HOSPITALIST [facility] Performed By: Nathan Devine Referring Physician: SUSANNA LYONS Interpretation Summary The left ventricle is borderline dilated. Left ventricular wall thickness is mildly increased. The left ventricular ejection fraction is grossly normal. Assessment of diastolic parameters indicates normal left ventricular diastolic function and normal filling pressures. The right ventricle is moderately dilated. The left atrium is not well visualized. Flattened septum is consistent with RV pressure/volume overload. Grossly, RA is at least moderately dilated. There is mild to moderate tricuspid regurgitation. There is no other significant valvular heart disease. The IVC is dilated (diameter is greater than 2.1 cm) and it collapses less than 50% with a sniff. This suggests a high right atrial pressure of 15 mm Hg. There is no pericardial effusion. Findings are suggestive of pulmonary embolism but should consider other etiologies as well such as hypoventilation syndrome. There is evidence for right sided heart failure as mentioned above and does not appear to be secondary to left sided heart failure based on 2-D echo and Doppler findings. Assessment & Plan Patient is a morbidly obese 41-year-old without previous history of known cardiac disease who presented to ED with new onset congestion, cough, with increased shortness of breath for 1 week. Patient endorses 20 pound weight gain in the past 3 weeks, with associated symptoms of increased fatigue and lateral lower extremity swelling, which patient attributed to too much sitting and poor diet. Patient presented with hypoxia, elevated BNP and troponin, with chest x- ray concerning for CHF and cardiomegaly. Patient is in for further risk stratification of her new be diagnosed CHF. Hypoxic respiratory failure, present on admission. Acute. - Most likely multifactorial due to her new onset of CHF exacerbated by her recent viral URI, in the presence of her morbid obesity, with possible obesity hypoventilation syndrome, possible obstructive sleep apnea with echocardiogram showing right ventricular strain and elevated right-sided pressures there is also a question of possible pulmonary embolism. We will continue therapeutic doses of Lovenox. I have contacted the [facility] transfer center on multiple occasions to see if we can get the patient transferred to one of their hospitals either [facility] or [facility]. Currently they have no beds and they are inquiring about the patient's height weight in with an girth and fit in there facility CT scan machines. As we need a diagnosis to decide whether or not to continue full therapeutic anticoagulation on this patient patient will need a CT angiogram of the chest. Patient will continue on current therapy for now until arrangements can be made for her to obtain a CT angiogram. A VQ scan was performed which was low probability. However, when I discussed the case with Dr. Noyola headend technician motel front desk attendant. She recommended that we proceed with CT scan to ensure the patient does not have a pulmonary embolism by CT angiogram as patient has severe right ventricular strain and severe right-sided heart pressures. - Bicarbonate elevated at 33, anion gap of 10, most likely due to compensation over time secondary to respiratory acidosis due to all of the above. I suspect the patient has obesity hypoventilation syndrome. I have consulted pulmonary and Dr. Noyola states that Dr. Alarcon and will see the patient in consultation in a.m. - Keep oxygen saturation above 92% New onset congestive heart failure, present on admission. - Chest x-ray findings suspicious for CHF with elevated BNP, patient reporting of recent weight gain of 20 pounds with lower extremity edema [id number] - Patient reports of having an echo at the [facility] 3 years ago, with no follow-up needed - On telemetry - Heart healthy diet - 60 mg of Lasix IV given twice and held yesterday due to concern over reducing patient's preload too much. We will give another dose of Lasix 60 mg IV today and continue daily for now. - Appreciate cardiology input, echocardiogram is suggestive of possible pulmonary embolism. Elevated troponin, present on admission. - No acute findings on ECG, patient asymptomatic, most likely due to demand ischemia - Trending troponin Elevated D-dimer, present on admission. Along with echocardiogram findings suggestive of pulmonary embolism. - Unable to get CTA due to habitus, Doppler negative for DVT, however echocardiogram is suggestive of possible PE due to right ventricular strain and elevated right-sided pressures per Dr. Bryant, final echocardiogram report pending - As patient is being subjected to full therapeutic doses of Lovenox it is imperative that we rule out pulmonary embolism by CT angiogram. Patient will be transferred to [facility]'s done for a bariatric CT scan as she is unable to fit in any CT scan in the [facility] or [facility] for that matter. Patient will be transferred there this evening and then brought back for further care here. Upper respiratory infection, present on admission. Acute. - No leukocytosis with Procalcitonin 0.05, most likely viral etiology - Respiratory viral PCR Elevated TSH - Free T4 pending Pickwickian syndrome, present on admission. Chronic. - Dietitian consult for CHF ordered - Patient has hypercarbia and likely will need a Trilogy respiratory device Morbid obesity, present on admission. Chronic - weight loss discussed - patient reports snoring, recommend sleep study outpatient for [facility] Acetaminophen-fever/headache/mild/moderate pain Antiemetics, as needed Bowel regimen, as needed. Patient status: Patient will likely be here another 48-72 hours for the evaluation and treatment of the above condition. Pain Evaluation: Adequate Pain Control GI Prophylaxis: Proton Pump Inhibitor VTE Prophylaxis: Sub-Q Enoxaparin Resuscitation Status: CPR: Attempt Resuscitation Bogdan Sapp MD March 22, 2017 23:37
[2017-03-23 05:52] VITALS: BP 148/74; PULSE 99; RESP 20
--- NOTE | 2017-03-23 06:24 | NUR ---
Arrival back to [facility] Patient arrived back to [facility] at 2330. alert and orientedx4 able to make needs known. vitals stable. on 2L via NC. patient skin appears red and blotchy. patient reports that this is normal for her. CPOX in place while sleeping. patients o2 desats to 50 on 6L via face mask. repositioned patient to 45degrees in bed and encouraged her to deep breathe. 02 up to 95%. will continue to monitor.
[2017-03-23] MEDS: Pantoprazole 40 mg ER24 Tablet PO SCH (07:35)
[2017-03-23] MEDS: Potassium Chloride 20 mEq SR Tablet PO SCH (07:35)
[2017-03-23] MEDS: Sodium Chloride LOK Flush 10 mL Syringe IVFLUSH SCH ×2 (07:36→17:16)
[2017-03-23 08:37] LABS: Magnesium 2.1 mg/dL (1.6-2.6)
[2017-03-23 09:16] LABS: Mean Corpuscular Hemoglobin 24.3 pg (27.0-35.0); Mean Corpuscular Volume 86.1 fL (81-100); Platelet Count 160 bil/L (150-400)
[2017-03-23 09:17] LABS: BASOPHILS % (AUTO) 0.3 % (0-3); EOSINOPHILS % (AUTO) 2.5 % (0-5); MONOCYTES % (AUTO) 7.3 % (4-12); NEUTROPHILS % (AUTO) 77.8 % (40-74)
[2017-03-23] MEDS: ENOXAPARIN SUBQ SCH ×2 (10:00)
[2017-03-23 13:00] VITALS: BP 133/85; PULSE 86; RESP 20; O2SAT 92
[2017-03-23 16:35] VITALS: PULSE 111
[2017-03-23 16:38] VITALS: PULSE 74; PULSE 78
[2017-03-23 16:42] VITALS: PULSE 77
--- NOTE | 2017-03-23 17:12 | CONS ---
[address] [address] CONSULTATION REPORT PATIENT: CHARLOTTE XIAO : 1975 MR#: [id number] ADMIT: 03/19/2017 JOB ID: [id number] DATE OF SERVICE: 03/23/2017 REQUESTING PHYSICIAN: Bogdan Sapp MD. REASON FOR CONSULTATION: Hypoxemia. HISTORY OF PRESENT ILLNESS: The patient is a 41-year-old, female who developed symptoms of an upper respiratory tract infection maybe as long as two weeks ago. Essentially had a cough. Minimal to no sputum. There was some shortness of breath. During this time, also noted to have swelling in her legs and to some extent her abdomen. There were no fever, chills or sweats. No headache. [facility] and was found to be hypoxic and therefore admitted. The patient denies prior history of lung disease. She does recall one event 21 years ago while hiking along a trail and became dyspneic. Used her friend's inhaler and felt quite a bit better afterwards. No subsequent episodes. There is no family history of asthma. The patient has not had a prior history of a pulmonary embolism. Not sure whether there is any family history of pulmonary embolism, mentioning maybe a grandmother, but that is unclear. The patient has been told she snores. Also told that she is apneic at night. As a rule, she does not have swelling in her ankles but noted marked swelling occurring over the past three weeks or so. She states that she is slowly putting on weight. It has been a progressive phenomenon. At times, she might lose 60 pounds, then quickly regains the weight. Also of note is that she was given thyroid pills in the past. Events surrounding the scrip for the thyroid pills is a bit unclear. She took them for a few years, then discontinued them unilaterally. No prior problems with heart disease. GEOGRAPHIC HISTORY: The patient was born in [place]. Lived there very briefly and then moved up to [place] as her father was in the [place]. Subsequently settled in the [facility] where she has remained since. 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 SOCIAL HISTORY: The patient does not engage in any hobbies which expose her to dust, fumes, or solvents. Pets: None. Does state her sister has a cat. Smoking history: The patient smoked for about 13 years, quitting 11 years ago. Exposure history: No known exposure to tuberculosis. MEDICATIONS: None. ALLERGIES: None known. TRAVEL HISTORY: Traveled to [place] and [facility] many years ago. OBJECTIVE: Temperature 36.9, pulse 83-99, respiratory rate 20, blood pressure 148/74, the patient is on 1.5 L. O2 sats recorded in the low 90s. General appearance: Well developed, well nourished, morbidly obese, female, standing at the side of her bed working on her computer. Eyes: Conjunctivae are pink. Nose: Minimal erythema. No edema. Throat: Good oral hygiene. Uvula olivia in the midline. Oropharynx is patent. Mallampati score was 1. Chest: Good breath sounds bilaterally. Lung justin are clear. No use of accessory muscles. Heart: Regular rhythm. Heart tones normal. No S3. Abdomen is soft. Nondistended. Nontender. Extremities 2+ pretibial edema up to her proximal thigh. Suggestion of some stasis changes. Does have some rash consistent with eczema on the scapular area as well as distal arms. LABORATORY DATA: Shows a white count of 8000. Hemoglobin stable at 13.1. Platelet count stable at 160,000. Sodium 141, potassium 4.3, chloride 95, CO2 is 38, BUN 7, creatinine 0.4, glucose 116, calcium normal at 8.5. Magnesium normal at 2.1. Total bilirubin, transaminases and alkaline phos are normal. Albumin 3.4. Procalcitonin 0.04. Free T4 is 0.9, normal being 0.82-1.77 ng/dL. TSH 7.17, upper limits of normal being 4.5. Chest x-ray shows lung justin are clear. Arterial blood gases on 2 L of oxygen show a pO2 of 63, pCO2 of 72, pH 7.37, bicarbonate of 41. Echocardiogram shows left ventricle borderline dilated. Left ventricular wall thickness mildly increased. LV ejection fraction grossly normal. Right ventricle moderately dilated. Septum is somewhat flattened. IVC dilated with a diameter greater than 2.1 cm. Collapse is less than 50% with a sniff. Findings consistent with a pulmonary embolism as well as pulmonary hypertension due to her hypoventilation syndrome. The verbal report of a CT pulmonary angiogram with pulmonary embolism protocol shows no evidence of pulmonary emboli. Awaiting formal report. ASSESSMENT: Hypoxemia. The patient suffers from a hypoventilation syndrome which exacerbates the hyoxemia. Would like formal verification of the CT pulmonary angiogram showing no evidence of pulmonary embolism.as it was done at an outside facility that could perform the test with her elevated weight of 430 pounds. In the absence of pulmonary emboli, the rest of the findings are consistent with obesity hypoventilation syndrome with chronic hypoxemia causing the pulmonary hypertension and cardiac findings. The patient therefore suffers from acute on chronic respiratory failure and she will need Trilogy for ventilatory support. Would benefit from a weight loss program. Exercise should be a regular part of her daily routine. Doubt the thyroid is playing a significant role. However, would wonder about thyroid replacement therapy in a morbidly obese patient with significant cardiopulmonary dysfunction. Will need to assess for hypoxemia at rest and with exertion. PLAN: 1. Trilogy. 2. May benefit from sleep studies in the future if weight loss is attained. 3. O2 studies room air and with exertion utilizing trilogy with sleep. 4. Confirm the absence of a PE. Thank so much, Dr. Sapp, for asking us to see this most delightful and engaging individual. We will follow her ventilatory status closely along with you. SKYLAR
[2017-03-23 20:59] VITALS: BP 121/77; PULSE 73; RESP 18; O2SAT 96
--- NOTE | 2017-03-24 00:01 | PCM.PNMED ---
Subjective Date of Service March 23, 2017 Subjective She has no new complaints. She does not feel any better and she does not feel any worse. Exam Vital Signs Vital Sign - Last Date Time Temp Pulse Resp B/P Pulse Ox O2 Delivery O2 Flow Rate FiO2 03/23/17 20:59 36.9 73 18 121/77 96 Nasal Cannula 2.00 Intake and Output 03/22/17 03/22/17 03/23/17 Cumulative From/Thru 15:00 23:00 07:00 03/19/17 15:41 - 03/23/17 06:36 Intake Total 1330 ml 400 ml 7455 ml Output Total 2700 ml 250 ml 77576 ml Balance -1370 ml 150 ml -47353 ml Intake Oral 1320 ml 400 ml 7425 ml IV Total 10 ml 30 ml Output Urine Total 2700 ml 250 ml 01708 ml # Bowel Movements 1 2 Exam General: The patient is in no apparent distress at rest. She does have dyspnea with exertion HEENT: Head is atraumatic and normocephalic. Eyes: Pupils are equally round and reactive to light and accommodation. Extraocular muscles are intact. Sclera are white, anicteric. Subconjunctival mucosa is pink. Ears and nose are unremarkable. Oropharynx: There is no mucosal lesions, there is no thrush, there is no pharyngitis. Neck: Is supple, there are no nodes, or masses or tenderness. Chest: Is significant for decreased breath sounds with few bibasilar rales. Heart: Rate, rhythm is regular. There is no murmur, rub or gallop. Abdomen: Good bowel sounds are present. Abdomen is morbidly obese, soft, nontender, no organomegaly or masses were appreciated. Extremities: Are symmetrical and well perfused. There is no to 3+ lower extremity edema, there is no cellulitis, no rash. However, there is some hyperemia of all 4 extremities. Patient states this is normal for her. Neurologic: There are no focal neurological deficits. Cranial nerves II through XII are intact. There are no sensory or motor deficits. Psychiatric: Patients mood is calm and shows no sign of agitation. Genital: Deferred Rectal: Deferred Lab and Diagnostics Result Diagram: 03/23/17 0725 03/23/17 0725 Microbiology Respiratory viral PCR is negative Blood cultures are negative 2 today. X-Rays, CTs and MRIs Date of Service: 03/19/17 1549 PROCEDURE: X-RAY CHEST, TWO VIEWS ([id number]) INDICATIONS: SHORTNESS OF BREATH, low sats IMPRESSION: Chronic CHF with acute exacerbation, no focal underlying pneumonia is found. No pleural effusion or mass lesion seen. Dictated by: Tyler Gomez M.D. on 03/19/2017 at 16:56 Approved by: Tyler Gomez M.D. on 03/19/2017 at 16:56 PROCEDURE: US VENOUS LEG DUPLEX BILATERAL INDICATIONS: Bilateral leg swelling and redness. TECHNIQUE: Real-time imaging, as well as color and pulse Doppler interrogation, were performed of the deep veins of both legs from the inguinal ligament to the popliteal fossa. COMPARISON: None. FINDINGS: The deep veins are normally compressible, and free of intraluminal thrombus. Color and pulse Doppler demonstrate normal phasic intravascular flow. There is normal augmentation response to distal compression maneuver. Evaluation slightly limited by body habitus. IMPRESSION: 1. No evidence of deep venous thrombosis in the right or left lower extremity. Dictated by: Lito Hopkins M.D. on 03/19/2017 at 20:03 Approved by: Lito Hopkins M.D. on 03/19/2017 at 20:04 PROCEDURE: X-RAY CHEST, TWO VIEWS ([id number]) INDICATIONS: CONGESTIVE HEART FAILURE TECHNIQUE: 2 views of the chest were acquired. COMPARISON: None. FINDINGS: Surgical changes and devices: None. Lungs and pleura: No pleural effusions or pneumothorax. Mild cephalization of the pulmonary vasculature and perihilar indistinctness. No focal air space opacities. Mediastinum: Mediastinal contours are normal. Heart size is mildly enlarged. Bones and chest wall: No suspicious bony abnormalities. Soft tissues appear unremarkable. IMPRESSION: Mild CHF. Dictated by: Delores Layne MD, PhD on 03/20/2017 at 20:46 Approved by: Delores Layne MD, PhD on 03/20/2017 at 20:47 Cardiac Echo Impressions Echocardiogram Report Name: CHARLOTTE XIAO HStudy Date : 03/20/2017 Height: 66.5 in Hospital Exam Location: [facility] Weight: 444 lb Gender: Female BSA: 2.8 m2 : 1975 Age: 41 yrs BP: 123/74 mmHg Reason For Study: SOB Ordering Physician: HOSPITALIST SV Performed By: Nathan Devine Referring Physician: SUSANNA LYONS Interpretation Summary The left ventricle is borderline dilated. Left ventricular wall thickness is mildly increased. The left ventricular ejection fraction is grossly normal. Assessment of diastolic parameters indicates normal left ventricular diastolic function and normal filling pressures. The right ventricle is moderately dilated. The left atrium is not well visualized. Flattened septum is consistent with RV pressure/volume overload. Grossly, RA is at least moderately dilated. There is mild to moderate tricuspid regurgitation. There is no other significant valvular heart disease. The IVC is dilated (diameter is greater than 2.1 cm) and it collapses less than 50% with a sniff. This suggests a high right atrial pressure of 15 mm Hg. There is no pericardial effusion. Findings are suggestive of pulmonary embolism but should consider other etiologies as well such as hypoventilation syndrome. There is evidence for right sided heart failure as mentioned above and does not appear to be secondary to left sided heart failure based on 2-D echo and Doppler findings. Assessment & Plan Patient is a morbidly obese 41-year-old without previous history of known cardiac disease who presented to ED with new onset congestion, cough, with increased shortness of breath for 1 week. Patient endorses 20 pound weight gain in the past 3 weeks, with associated symptoms of increased fatigue and lateral lower extremity swelling, which patient attributed to too much sitting and poor diet. Patient presented with hypoxia, elevated BNP and troponin, with chest x- ray concerning for CHF and cardiomegaly. Patient is in for further risk stratification of her new be diagnosed CHF. Hypoxic respiratory failure, present on admission. Acute. - Most likely multifactorial due to her new onset of CHF exacerbated by her recent viral URI, in the presence of her morbid obesity, with possible obesity hypoventilation syndrome, possible obstructive sleep apnea with echocardiogram showing right ventricular strain and elevated right-sided pressures there is also a question of possible pulmonary embolism. We will continue therapeutic doses of Lovenox. I have contacted the [facility] transfer center on multiple occasions to see if we can get the patient transferred to one of their hospitals either [facility] or [facility]. Currently they have no beds and they are inquiring about the patient's height weight in with an girth and fit in there facility CT scan machines. As we need a diagnosis to decide whether or not to continue full therapeutic anticoagulation on this patient patient will need a CT angiogram of the chest. Patient will continue on current therapy for now until arrangements can be made for her to obtain a CT angiogram. A VQ scan was performed which was low probability. However, when I discussed the case with Dr. Noyola health and safety representative optimization consultant. She recommended that we proceed with CT scan to ensure the patient does not have a pulmonary embolism by CT angiogram as patient has severe right ventricular strain and severe right-sided heart pressures. - Bicarbonate elevated at 33, anion gap of 10, most likely due to compensation over time secondary to respiratory acidosis due to all of the above. I suspect the patient has obesity hypoventilation syndrome. I have consulted pulmonary and Dr. Noyola states that Dr. Alarcon and will see the patient in consultation in a.m. - Keep oxygen saturation above 92% New onset congestive heart failure, present on admission. - Chest x-ray findings suspicious for CHF with elevated BNP, patient reporting of recent weight gain of 20 pounds with lower extremity edema x3wks - Patient reports of having an echo at the [facility] 3 years ago, with no follow-up needed - On telemetry - Heart healthy diet - 60 mg of Lasix IV given twice and held yesterday due to concern over reducing patient's preload too much. We will give another dose of Lasix 60 mg IV today and continue daily for now. - Appreciate cardiology input, echocardiogram is suggestive of possible pulmonary embolism. Elevated troponin, present on admission. - No acute findings on ECG, patient asymptomatic, most likely due to demand ischemia - Trending troponin Elevated D-dimer, present on admission. Along with echocardiogram findings suggestive of pulmonary embolism. - Unable to get CTA due to habitus, Doppler negative for DVT, however echocardiogram is suggestive of possible PE due to right ventricular strain and elevated right-sided pressures per Dr. Bryant. - As patient is being subjected to full therapeutic doses of Lovenox it is imperative that we rule out pulmonary embolism by CT angiogram. Patient was transferred to [facility] for a bariatric CT scan as she is unable to fit in any CT scan in the [facility], or [facility] for that matter. Patient was transferred there last evening and then brought back for further care here. Patient CT scan was negative for pulmonary emboli and appeared to show evidence of air trapping. VQ scan was also done here and showed low probability of pulmonary embolus. - Pulmonary consult obtained and appreciate Dr. Alarcon's time and expertise. Upper respiratory infection, present on admission. With Acute on Chronic respiratory failure. - No leukocytosis with Procalcitonin 0.05, most likely viral etiology - Respiratory viral PCR Elevated TSH - Free T4 pending Obesity hypoventilation syndrome, present on admission. Active, With Acute on Chronic Respiratory failure. - Dietitian consult for CHF ordered - Patient has hypercarbia and likely will need a Trilogy respiratory device - Pulmonary consult obtained and appreciate Dr. Alarcon's time and expertise. Morbid obesity, present on admission. Chronic - weight loss discussed - patient reports snoring, recommend sleep study outpatient for KYRA Acetaminophen-fever/headache/mild/moderate pain Antiemetics, as needed Bowel regimen, as needed. Patient status: Patient will likely be here another 24 to 48 hours for the evaluation and treatment of the above condition. Pain Evaluation: Adequate Pain Control GI Prophylaxis: Proton Pump Inhibitor VTE Prophylaxis: Sub-Q Enoxaparin VTE Mechanical Devices: Venous Foot Pump Resuscitation Status: CPR: Attempt Resuscitation Bogdan Sapp MD March 24, 2017 00:01
[2017-03-24] MEDS: Sodium Chloride LOK Flush 10 mL Syringe IVFLUSH SCH ×4 (00:24→21:10)
--- NOTE | 2017-03-24 04:11 | NUR ---
OXYGEN NEEDS Pt on 2L oxygen via NC when awake. When pt asleep, pt on 5-7L oxymask, w/ CPOx in use. Pt has been observed to be apneic when asleep, and oxygen saturations per CPOx as low as mid 50%. Pt has been woken up by RN numerous times during night to improved oxygen saturations. Pt sometimes removes oxymask as well during sleep. Continue to monitor. Call light in reach. Frequent rounding.
[2017-03-24 04:33] VITALS: BP 132/85; PULSE 93; RESP 18; O2SAT 93
[2017-03-24] MEDS: Potassium Chloride 20 mEq SR Tablet PO SCH (08:00)
[2017-03-24] MEDS: Pantoprazole 40 mg ER24 Tablet PO SCH (08:00)
[2017-03-24 13:30] VITALS: BP 127/76; PULSE 82; RESP 20; O2SAT 95
--- NOTE | 2017-03-24 14:04 | PROG NOTE ---
[address] [address] PROGRESS NOTE PATIENT: CHARLOTTE XIAO : 1975 MR#: [id number] ADMIT: 03/19/2017 JOB ID: [id number] DATE: 03/24/2017 PULMONARY FOLLOWUP NOTE: PROBLEM: Acute on chronic hypoxemic hypercarbic respiratory failure. SUBJECTIVE: Patient feels a bit tired. Otherwise breathing comfortably. Doing a bit of walking. OBJECTIVE: Temperature 36.6, pulse 73-93, respiratory rate 20, blood pressure 127/76, O2 sat on 2 L of oxygen at rest is 95%. Exercise study shows O2 saturation of 85% on room air at rest, 78% with exercise. With nasal cannula 2 L, exercise O2 sat is 90%. ASSESSMENT: Acute on chronic respiratory failure. The patient requires nocturnal and as necessary daytime volume ventilation. BiPAP is insufficient to deal with her ventilatory requirements due to the severity of her condition. PLAN: Trilogy volume ventilator.
--- NOTE | 2017-03-24 16:07 | NUR ---
Social Work-Readiness for Discharge: Data:EMR reviewed. Pt is on day 5 of hospitalization for CHF per H&P. Per morning rounds pt is medically stable for discharge and is awaiting Trilogy machine from [employer] to order HH RN for pt. Pt resides at home and has been up independent in her room. Pt likely to discharge home later today or tomorrow via family. SW will choice for HH RN when MD orders are received. SW will continue to follow. Assessment:Pt who is independent at baseline. Plan:Pt likely to discharge home later today or tomorrow via POV with Trilogy machine and HH RN pending MD orders. SW will choice for HH when orders are received. SW will continue to follow. SHAHEED Kelley
[2017-03-24 22:36] VITALS: BP 122/80; PULSE 72; RESP 18; O2SAT 96
--- NOTE | 2017-03-24 23:55 | PCM.PNMED ---
Subjective Date of Service March 24, 2017 Subjective Patient has no new complaints. She needs refills better nor worse. She states it hurts too much to sit for long periods of time so she spends much of her time in her room standing watching TV while standing and eating while standing. Exam Vital Signs Vital Sign - Last Date Time Temp Pulse Resp B/P Pulse Ox O2 Delivery O2 Flow Rate FiO2 03/24/17 22:36 36.8 72 18 122/80 96 Nasal Cannula 2.00 Intake and Output 03/23/17 03/23/17 03/24/17 Cumulative From/Thru 15:00 23:00 07:00 03/19/17 15:41 - 03/24/17 06:52 Intake Total 750 ml 1074 ml 9279 ml Output Total 2000 ml 1200 ml 51591 ml Balance -1250 ml -126 ml -61764 ml Intake Oral 750 ml 1074 ml 9249 ml IV Total 30 ml Output Urine Total 2000 ml 1200 ml 50454 ml # Bowel Movements 0 0 2 Exam General: Patient again is seen standing in the room eating a salad and watching a movie. Lab and Diagnostics Result Diagram: 03/23/17 0725 03/24/17 0730 Microbiology Respiratory viral PCR is negative Blood cultures are negative 2 today. X-Rays, CTs and MRIs Date of Service: 03/19/17 4827 PROCEDURE: X-RAY CHEST, TWO VIEWS ([id number]) INDICATIONS: SHORTNESS OF BREATH, low sats IMPRESSION: Chronic CHF with acute exacerbation, no focal underlying pneumonia is found. No pleural effusion or mass lesion seen. Dictated by: Tyler Gomez M.D. on 03/19/2017 at 16:56 Approved by: Tyler Gomez M.D. on 03/19/2017 at 16:56 PROCEDURE: US VENOUS LEG DUPLEX BILATERAL INDICATIONS: Bilateral leg swelling and redness. TECHNIQUE: Real-time imaging, as well as color and pulse Doppler interrogation, were performed of the deep veins of both legs from the inguinal ligament to the popliteal fossa. COMPARISON: None. FINDINGS: The deep veins are normally compressible, and free of intraluminal thrombus. Color and pulse Doppler demonstrate normal phasic intravascular flow. There is normal augmentation response to distal compression maneuver. Evaluation slightly limited by body habitus. IMPRESSION: 1. No evidence of deep venous thrombosis in the right or left lower extremity. Dictated by: Lito Hopkins M.D. on 03/19/2017 at 20:03 Approved by: Lito Hopkins M.D. on 03/19/2017 at 20:04 PROCEDURE: X-RAY CHEST, TWO VIEWS ([id number]) INDICATIONS: CONGESTIVE HEART FAILURE TECHNIQUE: 2 views of the chest were acquired. COMPARISON: None. FINDINGS: Surgical changes and devices: None. Lungs and pleura: No pleural effusions or pneumothorax. Mild cephalization of the pulmonary vasculature and perihilar indistinctness. No focal air space opacities. Mediastinum: Mediastinal contours are normal. Heart size is mildly enlarged. Bones and chest wall: No suspicious bony abnormalities. Soft tissues appear unremarkable. IMPRESSION: Mild CHF. Dictated by: Delores Layne MD, PhD on 03/20/2017 at 20:46 Approved by: Delores Layne MD, PhD on 03/20/2017 at 20:47 Cardiac Echo Impressions Echocardiogram Report Name: CHARLOTTE XIAO HStudy Date : 03/20/2017 Height: 66.5 in Hospital Exam Location: [facility] Weight: 444 lb Gender: Female BSA: 2.8 m2 : 1975 Age: 41 yrs BP: 123/74 mmHg Reason For Study: SOB Ordering Physician: HOSPITALIST [facility] Performed By: Nathan Devine Referring Physician: SUSANNA LYONS Interpretation Summary The left ventricle is borderline dilated. Left ventricular wall thickness is mildly increased. The left ventricular ejection fraction is grossly normal. Assessment of diastolic parameters indicates normal left ventricular diastolic function and normal filling pressures. The right ventricle is moderately dilated. The left atrium is not well visualized. Flattened septum is consistent with RV pressure/volume overload. Grossly, RA is at least moderately dilated. There is mild to moderate tricuspid regurgitation. There is no other significant valvular heart disease. The IVC is dilated (diameter is greater than 2.1 cm) and it collapses less than 50% with a sniff. This suggests a high right atrial pressure of 15 mm Hg. There is no pericardial effusion. Findings are suggestive of pulmonary embolism but should consider other etiologies as well such as hypoventilation syndrome. There is evidence for right sided heart failure as mentioned above and does not appear to be secondary to left sided heart failure based on 2-D echo and Doppler findings. Assessment & Plan Patient is a morbidly obese 41-year-old without previous history of known cardiac disease who presented to ED with new onset congestion, cough, with increased shortness of breath for 1 week. Patient endorses 20 pound weight gain in the past 3 weeks, with associated symptoms of increased fatigue and lateral lower extremity swelling, which patient attributed to too much sitting and poor diet. Patient presented with hypoxia, elevated BNP and troponin, with chest x- ray concerning for CHF and cardiomegaly. Patient is in for further risk stratification of her new be diagnosed CHF. Acute on chronic Hypoxic respiratory failure, present on admission. Acute and active. - Most likely multifactorial due to her new onset of CHF exacerbated by her recent viral URI, in the presence of her morbid obesity, with possible obesity hypoventilation syndrome, possible obstructive sleep apnea with echocardiogram showing right ventricular strain and elevated right-sided pressures there is also a question of possible pulmonary embolism. Patient was transferred to [facility] for CT scan and sent right back to our hospital after the scan was over with. The CT scan failed to show any evidence of pulmonary embolism. However, there was some evidence of possible air trapping. A VQ scan was performed which was low probability. However, when I discussed the case with Dr. Noyola machine riveter director recreation. The patient has severe right ventricular strain and severe right-sided heart pressures. - Bicarbonate elevated at 33, anion gap of 10, most likely due to compensation over time secondary to respiratory acidosis due to all of the above. I suspect the patient has obesity hypoventilation syndrome. I have consulted pulmonary and appreciate Dr. Noyola and Dr. Alarcon time and expertise - Keep oxygen saturation above 92% New onset congestive heart failure, present on admission. - Chest x-ray findings suspicious for CHF with elevated BNP, patient reporting of recent weight gain of 20 pounds with lower extremity edema x3wks - Patient reports of having an echo at the [facility] 3 years ago, with no follow-up needed - On telemetry - Heart healthy diet - 60 mg of Lasix IV given times this admission. - Appreciate cardiology input, echocardiogram showed severe right ventricular strain and severe right-sided heart pressures Elevated troponin, present on admission. - No acute findings on ECG, patient asymptomatic, most likely due to demand ischemia - Trending troponin Elevated D-dimer, present on admission. Along with echocardiogram findings suggestive of pulmonary embolism. - Unable to get CTA due to habitus, Doppler negative for DVT, however echocardiogram is suggestive of possible PE due to right ventricular strain and elevated right-sided pressures per Dr. Bryant. - As patient is being subjected to full therapeutic doses of Lovenox it is imperative that we rule out pulmonary embolism by CT angiogram. Patient was transferred to [facility] for a bariatric CT scan as she is unable to fit in any CT scan in the [facility], or [facility] for that matter. Patient was transferred there last evening and then brought back for further care here. Patient CT scan was negative for pulmonary emboli and appeared to show evidence of air trapping. VQ scan was also done here and showed low probability of pulmonary embolus. - Pulmonary consult obtained and appreciate Dr. Alarcon's time and expertise. Upper respiratory infection, present on admission. With Acute on Chronic respiratory failure. - No leukocytosis with Procalcitonin 0.05, most likely viral etiology - Respiratory viral PCR Elevated TSH - Free T4 pending Obesity hypoventilation syndrome, present on admission. Active, With Acute on Chronic Respiratory failure. - Dietitian consult for CHF ordered - Patient has hypercarbia and likely will need a Trilogy respiratory device as home BiPAP is insufficient due to the severity of the patient's condition. Therefore we are ordering a volume ventilation for the patient - Pulmonary consult obtained and appreciate Dr. Alarcon's time and expertise. Morbid obesity, present on admission. Chronic - weight loss discussed - patient reports snoring, recommend sleep study outpatient for KYRA Acetaminophen-fever/headache/mild/moderate pain Antiemetics, as needed Bowel regimen, as needed. Patient status: Patient will likely be here another 24 hours for the evaluation and treatment of the above. Pain Evaluation: Adequate Pain Control GI Prophylaxis: Proton Pump Inhibitor VTE Prophylaxis: Sub-Q Enoxaparin VTE Mechanical Devices: Venous Foot Pump Resuscitation Status: CPR: Attempt Resuscitation Bogdan Sapp MD March 24, 2017 23:55
--- NOTE | 2017-03-25 04:34 | NUR ---
TRILOGY/OXYGEN USE Pt set up w/ trilogy by RT during night. Pt trialed w/ and w/out oxygen using trilogy. On RA, pt was able to maintain 89-90% on RA for a few minutes, then maintained oxygen saturations 85-87%. With oxygen at 1L, oxygen saturations 86-90%. On 2L, pt able to maintain mostly 88-91%. Continue to monitor. Call light in reach. Intentional rounding.
[2017-03-25 06:04] VITALS: BP 120/76; PULSE 70; RESP 18; O2SAT 95
[2017-03-25] MEDS: Potassium Chloride 20 mEq SR Tablet PO SCH (07:37)
[2017-03-25] MEDS: Pantoprazole 40 mg ER24 Tablet PO SCH (07:37)
[2017-03-25] MEDS: Sodium Chloride LOK Flush 10 mL Syringe IVFLUSH SCH (07:38)
[2017-03-25 09:30] VITALS: BP_SYST 129; BP_SYST 131; BP_SYST 137; BP_DIAS 83; BP_DIAS 85; BP_DIAS 86; PULSE 72; RESP 18; O2SAT 95
--- NOTE | 2017-03-25 13:31 | PCM.DIMED ---
Discharge Instructions Date of Service March 25, 2017 Dates of Hospitalization March 19, 2017 at 19:44 Discharge Diagnosis Discharge Diagnosis Obesity Hypoventilation Syndrome with Acute on Chronic Respiratory Failure Diet Discharge Diet: Heart Healthy Activity Discharge Activity: No restrictions (Patient may resume her usual activities gradually as tolerated.) Call your provider Call your provider for: Fever or Chills, Shortness of breath, Bleeding, Chest pain, Vomitting, Excessive diarrhea, Weakness (unilateral) Patient Instructions Follow-up Provider: Maeve Vargas MD Follow-up with PCP in: 1 week Provider: Anita Noyola MD Follow-up in: 3 weeks Bogdan Sapp MD March 25, 2017 13:31
--- NOTE | 2017-03-25 13:31 | NUR ---
Social Work- Discharge: Data:EMR reviewed. Pt is on day 6 of hospitalization for CHF per H&P. Pt is medically stable for discharge and Trilogy machine has been recieved from [employer]. ordered home O2 for pt. Pt resides at home and has been up independent in her room. Pt to discharge home via family with Trilogy and home O2. No further needs assessed Assessment:Pt who is independent at baseline. Plan:Pt to discharge home via POV with Trilogy machine and Home O2 per MD orders. No further needs assessed. Bella Frost MSW
--- NOTE | 2017-03-25 13:58 | NUR ---
Discharge Patient given discharge orders. Patient IV removed fully intact and asymptomatic. Patient given follow up instructions with phone number to call for follow up care. Patient given informational packet. RT called to set patient up with home oxygen. Will assist patient to main entrance when ready for discharge.
--- NOTE | 2017-03-26 01:22 | PCM.DC.MED ---
Discharge Summary Date of Service March 25, 2017 Dates of Hospitalization Date of Hospital Admission March 19, 2017 at 19:44 Date of Discharge: March 25, 2017 Providers: Admitting Physician: Efren Donaldson MD Primary Care Physician: Maeve Vargas MD Attending Physician: Efren Donaldson MD Diagnosis at Time of Discharge Diagnosis at Time of Discharge Obesity Hypoventilation Syndrome with Acute on Chronic Respiratory Failure Consultations Dr. Casey Alarcon of pulmonary Procedures XRay, CTs & MRIs Date of Service: 03/19/17 1549 PROCEDURE: X-RAY CHEST, TWO VIEWS ([id number]) INDICATIONS: SHORTNESS OF BREATH, low sats IMPRESSION: Chronic CHF with acute exacerbation, no focal underlying pneumonia is found. No pleural effusion or mass lesion seen. Dictated by: Tyler Gomez M.D. on 03/19/2017 at 16:56 Approved by: Tyler Gomez M.D. on 03/19/2017 at 16:56 PROCEDURE: US VENOUS LEG DUPLEX BILATERAL INDICATIONS: Bilateral leg swelling and redness. TECHNIQUE: Real-time imaging, as well as color and pulse Doppler interrogation, were performed of the deep veins of both legs from the inguinal ligament to the popliteal fossa. COMPARISON: None. FINDINGS: The deep veins are normally compressible, and free of intraluminal thrombus. Color and pulse Doppler demonstrate normal phasic intravascular flow. There is normal augmentation response to distal compression maneuver. Evaluation slightly limited by body habitus. IMPRESSION: 1. No evidence of deep venous thrombosis in the right or left lower extremity. Dictated by: Lito Hopkins M.D. on 03/19/2017 at 20:03 Approved by: Lito Hopkins M.D. on 03/19/2017 at 20:04 PROCEDURE: X-RAY CHEST, TWO VIEWS ([id number]) INDICATIONS: CONGESTIVE HEART FAILURE TECHNIQUE: 2 views of the chest were acquired. COMPARISON: None. FINDINGS: Surgical changes and devices: None. Lungs and pleura: No pleural effusions or pneumothorax. Mild cephalization of the pulmonary vasculature and perihilar indistinctness. No focal air space opacities. Mediastinum: Mediastinal contours are normal. Heart size is mildly enlarged. Bones and chest wall: No suspicious bony abnormalities. Soft tissues appear unremarkable. IMPRESSION: Mild CHF. Dictated by: Delores Layne MD, PhD on 03/20/2017 at 20:46 Approved by: Delores Layne MD, PhD on 03/20/2017 at 20:47 Cardiac Echo Impression Echocardiogram Report Name: CHARLOTTE XIAO HStudy Date : 03/20/2017 Height: 66.5 in Hospital Exam Location: [facility] Weight: 444 lb Gender: Female BSA: 2.8 m2 : 1975 Age: 41 yrs BP: 123/74 mmHg Reason For Study: SOB Ordering Physician: HOSPITALIST [facility] Performed By: Nathan Devine Referring Physician: SUSANNA LYONS Interpretation Summary The left ventricle is borderline dilated. Left ventricular wall thickness is mildly increased. The left ventricular ejection fraction is grossly normal. Assessment of diastolic parameters indicates normal left ventricular diastolic function and normal filling pressures. The right ventricle is moderately dilated. The left atrium is not well visualized. Flattened septum is consistent with RV pressure/volume overload. Grossly, RA is at least moderately dilated. There is mild to moderate tricuspid regurgitation. There is no other significant valvular heart disease. The IVC is dilated (diameter is greater than 2.1 cm) and it collapses less than 50% with a sniff. This suggests a high right atrial pressure of 15 mm Hg. There is no pericardial effusion. Findings are suggestive of pulmonary embolism but should consider other etiologies as well such as hypoventilation syndrome. There is evidence for right sided heart failure as mentioned above and does not appear to be secondary to left sided heart failure based on 2-D echo and Doppler findings. Brief History Patient is a morbidly obese 41-year-old ex-smoker without previous history of known cardiac disease who presented to ED with new onset congestion and cough, congestion and increased shortness of breath for 1 week. Patient also reports of 20 pound weight gain in the past 3 weeks, with associated symptoms of increased fatigue and lateral lower extremity swelling, which patient attributed to too much sitting and poor diet. No known sick contacts. Patient denies chest pain, fevers or chills. PCP, Maeve Vargas. In the emergency department, she was noted to have episodes of desaturation required supplemental O2. She is also tachypic, but not visible distress. She has some chronic edema of her legs which reports is unchanged attributes to her habitus. Family history of heart disease, or prior history of heart disease. In the ED vitals temperature 37.4 pulse 70 respiratory 30 blood pressure 166/ 101 pulse ox 91% on room air. Labs, no leukocytosis with WBC 8.0, elevated bicarbonate at 33, with BNP 2160, troponin 0.03, D-dimer 1.1. CXR showed "Chronic CHF with acute exacerbation, no focal underlying pneumonia is found." Patient's size not fit for CTA, venous Doppler done on bilateral legs which were negative, apparently dosed with Lovenox overnight. Case was discussed with on-call customer assistance representative. Patient to have echocardiogram for further risk stratification, with cardiology seeing patient in the morning. Patient admitted for further workup and management. Hospital Course Patient is a morbidly obese 41-year-old without previous history of known cardiac disease who presented to ED with new onset congestion, cough, with increased shortness of breath for 1 week. Patient endorses 20 pound weight gain in the past 3 weeks, with associated symptoms of increased fatigue and lateral lower extremity swelling, which patient attributed to too much sitting and poor diet. Patient presented with hypoxia, elevated BNP and troponin, with chest x- ray concerning for CHF and cardiomegaly. Patient is in for further risk stratification of her new be diagnosed CHF. Acute on chronic Hypoxic respiratory failure, present on admission. Acute and active. - Most likely multifactorial due to her new onset of CHF exacerbated by her recent viral URI, in the presence of her morbid obesity, with possible obesity hypoventilation syndrome, possible obstructive sleep apnea with echocardiogram showing right ventricular strain and elevated right-sided pressures there is also a question of possible pulmonary embolism. Patient was transferred to [facility] for CT scan and sent right back to our hospital after the scan was over with. The CT scan failed to show any evidence of pulmonary embolism. However, there was some evidence of possible air trapping. A VQ scan was performed which was low probability. However, when I discussed the case with Dr. 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 The patient has severe right ventricular strain and severe right-sided heart pressures. - Bicarbonate elevated at 33, anion gap of 10, most likely due to compensation over time secondary to respiratory acidosis due to all of the above. I suspect the patient has obesity hypoventilation syndrome. I have consulted pulmonary and appreciate Dr. Noyola and Dr. Alarcon time and expertise - Keep oxygen saturation above 92% New onset congestive heart failure, present on admission. - Chest x-ray findings suspicious for CHF with elevated BNP, patient reporting of recent weight gain of 20 pounds with lower extremity edema [id number] - Patient reports of having an echo at the [facility] 3 years ago, with no follow-up needed - On telemetry - Heart healthy diet - 60 mg of Lasix IV given times this admission. - Appreciate cardiology input, echocardiogram showed severe right ventricular strain and severe right-sided heart pressures Elevated troponin, present on admission. - No acute findings on ECG, patient asymptomatic, most likely due to demand ischemia - Trending troponin Elevated D-dimer, present on admission. Along with echocardiogram findings suggestive of pulmonary embolism. - Unable to get CTA due to habitus, Doppler negative for DVT, however echocardiogram is suggestive of possible PE due to right ventricular strain and elevated right-sided pressures per Dr. Bryant. - As patient is being subjected to full therapeutic doses of Lovenox it is imperative that we rule out pulmonary embolism by CT angiogram. Patient was transferred to [facility] for a bariatric CT scan as she is unable to fit in any CT scan in the [facility], or [facility] for that matter. Patient was transferred there last evening and then brought back for further care here. Patient CT scan was negative for pulmonary emboli and appeared to show evidence of air trapping. VQ scan was also done here and showed low probability of pulmonary embolus. - Pulmonary consult obtained and appreciate Dr. Alarcon's time and expertise. Upper respiratory infection, present on admission. With Acute on Chronic respiratory failure. - No leukocytosis with Procalcitonin 0.05, most likely viral etiology - Respiratory viral PCR Elevated TSH - Free T4 pending Obesity hypoventilation syndrome, present on admission. Active, With Acute on Chronic Respiratory failure. - Dietitian consult for CHF ordered - Patient has hypercarbia and likely will need a Trilogy respiratory device as home BiPAP is insufficient due to the severity of the patient's condition. Therefore we are ordering a volume ventilation for the patient - Pulmonary consult obtained and appreciate Dr. Alarcon's time and expertise. Morbid obesity, present on admission. Chronic - weight loss discussed - patient reports snoring, recommend sleep study outpatient for [facility] Acetaminophen-fever/headache/mild/moderate pain Antiemetics, as needed Bowel regimen, as needed. Patient status: Patient will be discharged home with a Trilogy machine today. Exam Vital Signs (Last) Date Time Temp Pulse Resp B/P Pulse Ox O2 Delivery O2 Flow Rate FiO2 03/25/17 09:30 36.6 72 18 129/86 95 Nasal Cannula 2.00 131/83 137/85 Exam General: The patient is in no apparent distress at rest. She does have dyspnea with exertion HEENT: Head is atraumatic and normocephalic. Eyes: Pupils are equally round and reactive to light and accommodation. Extraocular muscles are intact. Sclera are white, anicteric. Subconjunctival mucosa is pink. Ears and nose are unremarkable. Oropharynx: There is no mucosal lesions, there is no thrush, there is no pharyngitis. Neck: Is supple, there are no nodes, or masses or tenderness. Chest: Is significant for decreased breath sounds with few bibasilar rales. Heart: Rate, rhythm is regular. There is no murmur, rub or gallop. Abdomen: Good bowel sounds are present. Abdomen is morbidly obese, soft, nontender, no organomegaly or masses were appreciated. Extremities: Are symmetrical and well perfused. There is no to 3+ lower extremity edema, there is no cellulitis, no rash. However, there is some hyperemia of all 4 extremities. Patient states this is normal for her. Neurologic: There are no focal neurological deficits. Cranial nerves II through XII are intact. There are no sensory or motor deficits. Psychiatric: Patients mood is calm and shows no sign of agitation. Genital: Deferred Rectal: Deferred Test 03/19/17 16:15 03/19/17 23:59 03/20/17 03:22 03/20/17 19:55 D-Dimer 1.12mg/L FEU (<0.50) Lactic Acid Level 1.1mmol/L (0.4-2.0) Thyroid Stimulating Hormone (TSH) 7.170uIU/mL (0.450-4.500) Hold Coronel Top Tube Received (Received) Urine Color Yellow (YELLOW) Urine Appearance Clear (CLEAR,HAZY) Urine pH 7.5 (5.0-8.0) Urine Specific [place] 1.010 (1.003-1.035) Urine Protein Negativemg/dL (NEG,TRACE) Urine Glucose (UA) Negativemg/dL (NEGATIVE) Urine Ketones Negativemg/dL (NEGATIVE) Urine Occult Blood Large (NEGATIVE) Urine Nitrite Negative (NEGATIVE) Urine Bilirubin Negative (NEGATIVE) Urine Urobilinogen Normalmg/dL (NORMAL) Urine Leukocyte Esterase Negative (NEGATIVE) Urine RBC 11-50/hpf (0-2) Urine WBC 0-5/hpf (0-5) Urine Epithelial Cells Occasional/hpf (NONE-MOD) Urine Crystals None seen (NONE SEEN) Urine Bacteria None/hpf (NONE-FEW) Urine Hyaline Casts None/lpf (NONE) Urine Granular Casts None seen (NONE SEEN) Urine Waxy Casts None seen (NONE SEEN) Urine Red Blood Cell Casts None seen (NONE SEEN) Urine White Blood Cell Casts None seen (NONE SEEN) Urine Mucus None seen (None Seen) Urine Trichomonas None seen (NONE SEEN) Urine Yeast None (NONE SEEN) Urine Culture Reflexed Not indicated Urine HCG, Qualitative Negative (Negative) Triglycerides Level 104mg/dL (0-149) Cholesterol Level 158mg/dL (100-199) LDL Cholesterol, Calculated 106.200mg/dL (0-99) VLDL Cholesterol 20.800mg/dL HDL Cholesterol 31mg/dL (>39) Cholesterol/HDL Ratio 5.10 (0.0-4.4) Troponin T 0.014ug/L (0.0-0.011) Test 03/21/17 06:15 03/22/17 07:50 03/23/17 07:25 03/24/17 07:30 Erythrocyte Sedimentation Rate 6mm/hr (0-32) C-Reactive Protein 2.1mg/dL (0.0-0.5) Pro-B-Type Natriuretic Peptide 393.0pg/mL (0-130) Free Thyroxine 0.90ng/dL (0.82-1.77) Triiodothyronine (T3) Uptake 30% (24-39) White Blood Count 8.0th/mm3 (3.8-10.1) Red Blood Count 5.38mil/mm3 (3.90-5.20) Hemoglobin 13.1g/dL (12.0-15.6) Hematocrit 46.3% (35.0-46.0) Mean Corpuscular Volume 86.1fL (81-100) Mean Corpuscular Hemoglobin 24.3pg (27.0-35.0) Mean Corpuscular Hemoglobin Concent 28.3% (32.0-37.0) Red Cell Distribution Width 16.0% (12.3-15.4) Platelet Count 160bil/L (150-400) Neutrophils (%) (Auto) 77.8% (40-74) Lymphocytes (%) (Auto) 11.8% (14-46) Monocytes (%) (Auto) 7.3% (4-12) Eosinophils (%) (Auto) 2.5% (0-5) Basophils (%) (Auto) 0.3% (0-3) Total Bilirubin 0.4mg/dL (0.0-1.2) Aspartate Amino Transf (AST/SGOT) 27U/L (0-50) Alanine Aminotransferase (ALT/SGPT) 23U/L (0-32) Alkaline Phosphatase 60U/L (25-150) Total Protein 6.5g/dL (6.4-8.4) Albumin 3.4g/dL (3.4-5.0) Procalcitonin 0.04ng/mL (0.00-0.08) Sodium Level 141mEq/L (134-144) Potassium Level 4.8mEq/L (3.5-5.2) Chloride Level 96mEq/L (97-108) Carbon Dioxide Level 38mmol/L (18-29) Blood Urea Nitrogen 6mg/dL (6-24) Creatinine 0.44mg/dL (0.57-1.00) Estimat Glomerular Filtration Rate 227mL/min (>59) Glucose Level 122mg/dL (60-99) Calcium Level 8.5mg/dL (8.5-10.1) Magnesium Level 2.0mg/dL (1.6-2.6) Microbiology Results Respiratory viral PCR is negative Blood cultures are negative 2 today. Discharge Medications No Active Prescriptions or Reported Meds Followup Plan Disposition: Patient is being discharged home with a Trilogy machine. Discharge Diet: Heart Healthy Discharge Activity: No restrictions (Patient may resume her usual activities gradually as tolerated.) Follow-up Provider: Maeve Vargas MD Follow-up with PCP in: 1 week Provider: Anita Noyola MD Follow-up in: 3 weeks Time spent Time spent on discharging this patient was greater than 35 minutes, over half of which was involved in counseling and coordination of care. Bogdan Sapp MD 25, 2017 01:22
== END 2017-03-25 15:17 | disposition home or self-care (01) | DRG 189 ==
LOC: SED 15:41 → MPC 19:44
PROVIDERS: ADMIT Hospitalist; ATTEND Hospitalist
PROC: 4A033B1 Measurement of Arterial Pressure, Peripheral, Percutaneous Approach (ICD-10-PCS; principal; 2017-03-22)
PROC: 5A09357 Assistance with Respiratory Ventilation, Less than 24 Consecutive Hours, Continuous Positive Airway Pressure (ICD-10-PCS; 2017-03-25)
DX: J96.21 Acute and chronic respiratory failure with hypoxia (principal); Z68.44 Body mass index [BMI] 60.0-69.9, adult; E66.2 Morbid (severe) obesity with alveolar hypoventilation; I10 Essential (primary) hypertension; I27.2 Other secondary pulmonary hypertension; Z87.891 Personal history of nicotine dependence